=== PATIENT | male | born 1985 | race Asian ===

== ENCOUNTER 2019-08-19 11:47 | Emergency (ER) | payer SELFPAY ==
[~2019-08-19] VITALS: Ht 172.7 cm; Wt 78.7 kg
[2019-08-19 11:50] VITALS: BP 159/100
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
[2019-08-19] MEDS: SILVER SULFADIAZINE 50 GM CREAM ONE (12:09)
[2019-08-19] MEDS: TETANUS,DIPTH,PERTUSS P/F (BOOSTRIX) 0.5 ML VIAL IM ONE ×2 (12:09→12:10)
[2019-08-19] MEDS: KETOROLAC 60 MG/2 ML VIAL ONE (12:09)
[2019-08-19] MEDS ORDERED: TETANUS,DIPTH,PERTUSS P/F (BOOSTRIX) 0.5 ML VIAL IM ONE (12:15)
[2019-08-19] MEDS ORDERED: KETOROLAC 60 MG/2 ML VIAL IM ONE (12:15)
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
[2019-08-19] MEDS ORDERED: HYDR-83 PO (12:24)
--- NOTE | 2019-08-19 12:32 | NUR ---
Pt discharged after review of home instructions verbalized as understood. Pt has had wound care, application of Silvadene cream, applied gauze roll wraps to each forearm to maintain the Silvadene. Pt has no PCP and was advised to be followed closely by a provider. Pt given his options to call in [facility]. Pt states he may be going to [facility] for follow up. Pt is to return to ER with any concerns or change in condition.
[2019-08-20] MEDS ORDERED: SILVER SULFADIAZINE 50 GM CREAM TOP SCH (09:00)
== END 2019-08-19 12:32 | disposition home or self-care (01) ==
LOC: ER FS 11:49
DX: T20.29XA Burn of second degree of multiple sites of head, face, and neck, initial encounter (principal); T22.152A Burn of first degree of left shoulder, initial encounter; T22.192A Burn of first degree of multiple sites of left shoulder and upper limb, except wrist and hand, initial encounter; T31.0 Burns involving less than 10% of body surface; F41.9 Anxiety disorder, unspecified; Z23 Encounter for immunization; X12.XXXA Contact with other hot fluids, initial encounter
CPT/HCPCS: 90471; 90715; 96372; 99284

== ENCOUNTER → 2022-05-06 | Outpatient (CLI) | payer SELFPAY ==
[~2022-05-06] MED LIST: ACHD5005 PO
--- NOTE | 2022-05-06 13:01 | Diagnostic Imaging Report ---
EXAMINATION: Chest 2 view HISTORY: DYSPNEA COMPARISON: None available. FINDINGS: Heart size and pulmonary vasculature are normal. The lungs are clear without consolidation, pleural effusion, or pneumothorax. The osseous structures are intact. IMPRESSION: 1. No acute radiographic abnormality in the chest. Dictated by: Dictated on workstation # [id number]
== END ==
LOC: RAD FS 12:10
DX: R06.00 Dyspnea, unspecified (principal)
CPT/HCPCS: 71046

== ENCOUNTER 2022-11-14 14:05 | Emergency (ER) | payer OTHER ==
--- NOTE | 2022-11-14 14:17 | ED General ---
General Chief Complaint: Medical Screening Exam Stated Complaint: MEDICAL CLEARANCE/FENTANYL WITHDRAWAL History of Present Illness Date Seen by Provider: Nov 14, 2022 Time Seen by Provider: 14:14 Initial Comments 37-year-old male presents with need for medical clearance. He reports that he wanted to be evaluated because he is concerned he may go through fentanyl withdrawal. Patient reports that he has been on fentanyl long-term. At one time he was and Suboxone clinic but went back to using fentanyl. [facility] getting [facility] to [facility] and is concerned he may start having withdrawals. There is medical staff available at the [facility]. He has no acute complaints or findings Allergies and Home Medications Allergies Coded Allergies: No Known Drug Allergies (Unverified , 08/19/19) Patient Home Medication List Home Medication List Reviewed: Yes Hydrocodone/Acetaminophen (Hydrocodone-Acetamin 5-325 mg) 1 Each Tablet, 1 EACH PO Q6H Prescribed by: MANOLO TEJADA on 08/19/19 1224 Review of Systems Review of Systems Constitutional: no symptoms reported EENTM: no symptoms reported Respiratory: no symptoms reported Cardiovascular: no symptoms reported Gastrointestinal: no symptoms reported Genitourinary: no symptoms reported Musculoskeletal: no symptoms reported Skin: no symptoms reported Psychiatric/Neurological: No Symptoms Reported Past Yxsvnfh-Tcrdlo-Riedsk Hx Immunizations Up To Date Tetanus Booster (TDap): Unknown Seasonal Allergies Seasonal Allergies: No Past Medical History Surgeries: No Respiratory: No Cardiac: No Neurological: No Genitourinary: No Gastrointestinal: No Musculoskeletal: No Endocrine: No HEENT: No Cancer: No Psychosocial: No Integumentary: No Blood Disorders: No Physical Exam Vital Signs Capillary Refill : Height, Weight, BMI Height: '" Weight: lbs. oz. kg; 26.00 BMI Method: General Appearance: No Apparent Distress, WD/WN Respiratory: Lungs Clear, Normal Breath Sounds Cardiovascular: Regular Rate, Rhythm, No Edema Gastrointestinal: Non Tender, Soft Extremity: Normal Capillary Refill, Normal Range of Motion Neurologic/Psychiatric: Alert, Oriented x3, No Motor/Sensory Deficits Skin: Normal Color, Warm/Dry Progress/Results/Core Measures Suspected Sepsis SIRS Temperature: Pulse: Respiratory Rate: Blood Pressure / Mean: Results/Orders Vital Signs/I&O Capillary Refill : Progress Note : Progress Note Discussed with patient that at this time is unfortunate he may have withdrawals but he is not currently having withdrawals and they do have medical staff available at the [facility]. That potential for withdrawal is not a reason for me not to medically clear him. He is medically cleared and discharged with law enf orcement Departure Impression Primary Impression: Medical clearance for incarceration Disposition: 21 DIS/[address]/LAW ENFORCE Condition: Stable Departure-Patient Inst. Referrals: NO,LOCAL PHYSICIAN (PCP/Family) Primary Care Physician Patient Instructions: NO INSTRUCTIONS GIVEN Add. Discharge Instructions: Patient okay for incarceration. Please have medical staff monitor him for further needs All discharge instructions reviewed with patient and/or family. Voiced understanding. TEETEE VILLAGRAN DO Nov 14, 2022 14:17
[2022-11-14 14:19] VITALS: BP 172/112
== END 2022-11-14 14:20 ==
LOC: EDUNIT# 14:05 → ER FS 14:07
DX: Z28.310 Unvaccinated for COVID-19
CPT/HCPCS: 99283